=== PATIENT | male | born 1940 | race Caucasian/White ===

== ENCOUNTER 2018-04-11 14:22 | Emergency (ER) | payer OTHER ==
[~2018-04-11] VITALS: Ht 172.7 cm; Wt 71.8 kg
[2018-04-11 14:31] VITALS: TEMP 97.5
[2018-04-11 15:20] LABS: BASO % 0.5 % (0.0-2.0); EOS # 0.1 (0.0-0.7); EOS % 1.9 % (0-4.0); GRAN # 4.6 (1.4-6.5); GRAN % 61.6 % (42.2-75.2); HEMATOCRIT 44.5 % (42.0-52.0); HEMOGLOBIN 15.1 g/dl (13.5-18.0); MEAN CELL VOLUME 92 fl (80.0-100.0); MEAN CORPUSCULAR HEMOGLOBIN 31 pg (27.0-31.0); MEAN CORPUSCULAR HGB CONC 34 g/dl (33.0-37.0); MEAN PLATELET VOLUME 9.3 fl (7.4-10.4); MONO # 0.7 (0.1-0.6); MONO % 8.9 % (1.7-9.3); PLATELET COUNT 266 K/mm3 (130-400); RED BLOOD COUNT 4.83 M/mm3 (4.20-5.60); REDCELL DISTRIBUTION WIDTH-CV 13.3 % (11.5-14.5)
[2018-04-11 15:30] LABS: ALANINE AMINOTRANSFERASE 26 U/L (21-72); ALBUMIN 4.1 gm/dL (3.5-5.0); ALKALINE PHOSPHATASE 93 U/L (50-136); ANION GAP 5 mmol/L (7-16); AST,SGOT 25 U/L (15-37); BILIRUBIN,TOTAL 0.7 mg/dL (0.0-1.0); BLOOD UREA NITROGEN 18 mg/dL (9-20); CALCIUM 9.8 mg/dL (8.4-10.2); CARBON DIOXIDE 28 mmol/L (22-30); CHLORIDE 107 mmol/L (98-107); CREATINE KINASE 87 U/L (55-170); GLUCOSE 104 mg/dL (74-106); POTASSIUM 4.3 mmol/L (3.4-5.0); SODIUM 141 mmol/L (137-145); TOTAL PROTEIN 7.3 gm/dL (6.4-8.2)
[2018-04-11 15:45] LABS: TROPONIN-I < 0.012 ng/mL (0.000-0.034)
[2018-04-11 16:15] VITALS: BP 124/84; PULSE 69
== END 2018-04-11 16:15 | disposition home or self-care (01) ==
LOC: COL.ER 14:22
PROVIDERS: Emergency Medicine
DX: M54.12 Radiculopathy, cervical region (principal); M79.602 Pain in left arm; R42 Dizziness and giddiness; Z79.82 Long term (current) use of aspirin

== ENCOUNTER 2020-09-18 16:36 | Emergency (ER) | payer OTHER, MEDICARE ==
[~2020-09-18] VITALS: Ht 172.7 cm; Wt 77.3 kg
[2020-09-18 16:47] VITALS: TEMP 98.3
[2020-09-18] MEDS ORDERED: CEPHALEXIN500 M1 PO (17:05)
[2020-09-18 17:23] VITALS: BP 135/86; PULSE 86
== END 2020-09-18 17:24 | disposition home or self-care (01) ==
LOC: COL.ER 16:36
DX: R04.0 Epistaxis (principal)